=== PATIENT | female | born 1985 | race Caucasian/White ===

== ENCOUNTER 2023-03-01 12:40 | Outpatient (CLI) | payer OTHER, SELFPAY ==
--- NOTE | 2023-03-01 13:00 | CRLHL7_ITS ---
For Patients: As a result of the Century Cures Act, medical imaging exams and procedure reports are released immediately into your electronic medical record. You may view this report before your referring provider. If you have questions, please contact your health care provider. INDICATION: Low back pain. Lumbar radiculopathy. TECHNIQUE: Noncontrast sagittal and axial T1, T2, and sagittal STIR sequences are provided. No comparisons. FINDINGS: The overall stature, alignment and intrinsic marrow signal of the lumbar spine is within normal limits. Conus is normal. L4-5: Minor leftward eccentric disc bulge extends into the left neural foramina mildly contacting the exiting left L4 nerve root laterally. No central canal or right foraminal narrowing. L5-S1: Minor left posterior paracentral disc extrusion with caudal migration results in no significant central canal or foraminal narrowing. Remainder of the lumbar spine is unremarkable, specifically no evidence of suspicious central canal or foraminal narrowing. IMPRESSION: 1. Mild leftward eccentric disc bulge at L4-5 mildly contacting the exiting left L4 nerve root laterally. 2. Minor discogenic degenerative change at L5-S1 resulting in no central canal or foraminal narrowing. Dictated by Manuelito Pugh MD @ 03/01/2023 8:16:05 PM (Electronically Signed)
== END 2023-03-01 12:41 | disposition home or self-care (01) ==
LOC: MRI 12:42
PROVIDERS: PCP Family Medicine; Visit Provider Family Medicine
DX: M54.16 Radiculopathy, lumbar region (principal); M54.50 Low back pain, unspecified; M51.26 Other intervertebral disc displacement, lumbar region; M51.37 Other intervertebral disc degeneration, lumbosacral region
CPT/HCPCS: 72148

== ENCOUNTER 2024-03-30 13:16 | Outpatient (CLI) | payer OTHER, BC, SELFPAY ==
[2024-03-30 14:04] LABS: Ur HCG Qualitative* Negative (Negative)
== END 2024-03-30 13:17 | disposition home or self-care (01) ==
LOC: INJ CL 13:17
PROVIDERS: PCP Family Medicine; Visit Provider Family Medicine
DX: M54.16 Radiculopathy, lumbar region (principal); M51.26 Other intervertebral disc displacement, lumbar region
CPT/HCPCS: 64483; 81025; J1100; Q9966

== ENCOUNTER 2024-11-22 09:11 | Outpatient (CLI) | payer BC, SELFPAY ==
[2024-11-23 20:41] LABS: HPV Source Cervix
== END 2024-11-22 09:12 | disposition home or self-care (01) ==
PROVIDERS: PCP Family Medicine; Visit Provider Family Medicine
DX: R53.83 Other fatigue (principal); Z13.6 Encounter for screening for cardiovascular disorders; Z13.9 Encounter for screening, unspecified; Z12.4 Encounter for screening for malignant neoplasm of cervix
CPT/HCPCS: 80048; 80061; 84443; 85025; 87624; 87625; 88141; 88142